=== PATIENT | male | born 1990 | race Caucasian/White ===

== ENCOUNTER 2018-03-09 05:32 | Emergency (ER) | payer OTHER ==
[~2018-03-09] VITALS: Ht 177.8 cm; Wt 77.1 kg
[~2018-03-09 05:32] MED LIST: NORCO 5-325 TA1 EACH PO; ZPAK PO
[2018-03-09 05:58] LABS: URINE BILIRUBIN NEGATIVE (Negative); URINE BLOOD 3+ (Negative); URINE CLARITY CLEAR; URINE COLOR YELLOW; URINE GLUCOSE-RANDOM NEGATIVE (Negative); URINE KETONES NEGATIVE (Negative); URINE LEUKOCYTES-REFLEX NEGATIVE (Negative); URINE NITRITE-REFLEX NEGATIVE (Negative); URINE PROTEIN TRACE (Negative); URINE SPECIFIC GRAVITY >= 1.030 (1.005-1.030); URINE UROBILINOGEN 0.2 E.U./dl (0.2-1.0)
[2018-03-09 06:11] LABS: BACTERIA-REFLEX 1-9 Few /HPF (None Seen); CASTS None Seen /LPF (None Seen); CRYSTALS None Seen /LPF (None Seen); MUCUS None Seen strn/LPF (None Seen); SQUAMOUS 0-3 Few /LPF (0-3); URINE RBC >20 Many /HPF (0-2); URINE WBC-REFLEX 0-5 Rare /HPF (0-5)
[2018-03-09] MEDS ORDERED: BACTRIM DS TAB1 EACH PO (07:36)
[2018-03-09] MEDS ORDERED: IBUPROFEN 800800 M1 PO (07:36)
[2018-03-09] MEDS ORDERED: ZOFRAN ODT4 MG DISSOLVE (07:36)
[2018-03-09] MEDS ORDERED: FLOMAX0.4 MG PO (07:36)
[2018-03-09] MEDS ORDERED: NORCO 5-325 TA1 EACH PO (07:36)
[2018-03-09 08:11] VITALS: BP 100/63
== END 2018-03-09 08:12 | disposition home or self-care (01) ==
LOC: M.ERS 05:32
PROVIDERS: Personal Emergency Response Attendant
DX: N20.0 Calculus of kidney (principal); R11.10 Vomiting, unspecified